=== PATIENT | female | born 1980 | race Caucasian/White ===

== ENCOUNTER 2022-08-11 03:39 | Outpatient (CLI) | payer MEDICAID, SELFPAY ==
[2022-08-11 14:09] LABS: Anion Gap 6.9 mmol/L (3-11); BUN 17 mg/dL (7-18); CO2 29.1 mmol/L (21.0-32.0); CREATININE 0.7 mg/dL (0.55-1.02); Calcium 9.8 mg/dL (8.5-10.1); Calculated LDL 32 mg/dL (<100); Chloride 102 mmol/L (98-107); Cholesterol 203 mg/dL (<200); Estimated GFR 109.98 (mL/min/1.73m2); Glucose 93 mg/dL (74-106); HDL Cholesterol 157 mg/dL (40-60); Potassium 4.5 mmol/L (3.5-5.1); Sodium 138 mmol/L (136-145); TSH (W/Ref FT4) 0.65 uIU/mL (0.36-3.74); Triglyceride 70 mg/dL (<150)
[2022-08-11 19:59] LABS: Lab Add On Test DONE
[2022-08-11 20:07] LABS: Magnesium 2.3 mg/dL (1.8-2.4)
== END 2022-08-11 03:40 | disposition home or self-care (01) ==
LOC: LBO 03:39
PROVIDERS: PCP Student in an Organized Health Care Education/Training Program; Visit Provider Student in an Organized Health Care Education/Training Program
DX: Z13.220 Encounter for screening for lipoid disorders (principal); E34.9 Endocrine disorder, unspecified; F32.A Depression, unspecified; N92.1 Excessive and frequent menstruation with irregular cycle; R45.86 Emotional lability; R45.89 Other symptoms and signs involving emotional state; R53.83 Other fatigue; E86.0 Dehydration; Z91.89 Other specified personal risk factors, not elsewhere classified; E63.9 Nutritional deficiency, unspecified; Z86.39 Personal history of other endocrine, nutritional and metabolic disease
CPT/HCPCS: 36415; 80048; 80061; 83735; 84443

== ENCOUNTER 2023-02-03 11:01 | Outpatient (CLI) | payer MEDICAID, SELFPAY ==
[2023-02-03 11:39] LABS: Absolute Eosinophil Count 0.07 10^3/uL (0.0-0.7); Eosinophils % 1.2; RDW 14.8 % (11.7-14.6)
[2023-02-03 12:00] LABS: Abs Immature Grans 0.03 10^3/uL (0.0-0.06); Absolute Basophil Count 0.03 10^3/uL (0.0-0.2); Absolute Lymphocyte Count 1.95 10^3/uL (1.2-3.4); Absolute Monocyte Count 0.82 10^3/uL (0.1-0.8); Absolute Neutrophil Count 2.88 10^3/uL (1.2-6.7); Basophils % 0.5; Immature Grans % 0.5; Lymphocytes % 33.7; MCH 34.7 pg (27.0-33.0); MPV 11.4 fL (8.0-11.0); Monocytes % 14.2; Neutrophils % 49.9; Platelet Count 158 10^3/uL (130-400); RBC 4.12 10^6/uL (3.93-5.22); RDW-SD 48.1 fL; WBC 5.78 10^3/uL (4.4-10.8)
[2023-02-03 12:01] LABS: CO2 21.2 mmol/L (21.0-32.0)
[2023-02-03 12:44] LABS: ALT 101 U/L (14-59); AST 111 U/L (15-37); Alkaline Phosphatase 128 U/L (46-116); Anion Gap 14.8 mmol/L (3-11); BUN 13 mg/dL (7-18); Bilirubin, Total 0.8 mg/dL (0.2-1.0); CREATININE 0.9 mg/dL (0.55-1.02); Chloride 101 mmol/L (98-107); Estimated GFR 80.84 (mL/min/1.73m2); Glucose 102 mg/dL (74-106); Potassium 4.1 mmol/L (3.5-5.1); Sodium 137 mmol/L (136-145); Total Protein 6.9 g/dL (6.4-8.2)
[2023-02-03 12:49] LABS: Calcium 8.9 mg/dL (8.5-10.1)
[2023-02-03 12:50] LABS: HCT 37.4 % (36.0-46.0); MCV 91 fL (80-95)
[2023-02-03 12:51] LABS: MCHC 37.3 % (32.0-36.0)
[2023-02-03 21:34] LABS: Prolactin 5.5 ng/mL (See Note)
== END 2023-02-03 11:02 | disposition home or self-care (01) ==
LOC: LBO 11:03
PROVIDERS: PCP Student in an Organized Health Care Education/Training Program; Visit Provider Obstetrics & Gynecology
DX: N92.5 Other specified irregular menstruation (principal); E78.1 Pure hyperglyceridemia; D64.9 Anemia, unspecified; R74.8 Abnormal levels of other serum enzymes; E63.8 Other specified nutritional deficiencies; E87.8 Other disorders of electrolyte and fluid balance, not elsewhere classified
CPT/HCPCS: 36415; 80053; 84146; 84443; 85025

== ENCOUNTER → 2023-02-05 01:45 | Outpatient (CLI) | payer MEDICAID, SELFPAY ==
--- NOTE | 2023-02-05 08:45 | DI.US_ITS ---
Exam(s) US PELVIS EXAM: US PELVIS CLINICAL HISTORY: anatomy, DYSNFUNCTIONAL UTERINE BLEEDING, N93.8 TECHNIQUE: Transabdominal imaging was performed using standard protocol. The patient declined trans vaginal imaging due to current menses and discomfort. COMPARISON: No exams were available for comparison FINDINGS: UTERUS: Anteverted. 6.6 x 3.9 x 4 cm. Cm Endometrium: 5 mm Myometrium: Unremarkable. Cervix: Unremarkable. OVARIES: Right: Cyst or mass: None. Left: Cyst or mass: 2.3 centimeter dominant follicle. DOPPLER: Color: Symmetric and uniform flow to both ovaries. No hyperemia. CUL-DE-SAC: Free fluid: None. IMPRESSION: 1. Normal-appearing uterus with endometrial stripe within normal limits. 2. Unremarkable bilateral ovaries. DATA REPOSITORY:
== END ==
PROVIDERS: PCP Student in an Organized Health Care Education/Training Program; Visit Provider Obstetrics & Gynecology
DX: N93.8 Other specified abnormal uterine and vaginal bleeding (principal)
CPT/HCPCS: 76856

== ENCOUNTER 2023-02-09 10:06 | Outpatient (CLI) | payer MEDICAID, SELFPAY ==
[2023-02-09 08:18] LABS: Abs Immature Grans 0.06 10^3/uL (0.0-0.06); Absolute Basophil Count 0.05 10^3/uL (0.0-0.2); Absolute Eosinophil Count 0.13 10^3/uL (0.0-0.7); Absolute Lymphocyte Count 2.46 10^3/uL (1.2-3.4); Absolute Monocyte Count 0.69 10^3/uL (0.1-0.8); Absolute Neutrophil Count 2.94 10^3/uL (1.2-6.7); Basophils % 0.8; Eosinophils % 2.1; HCT 34.8 % (36.0-46.0); Immature Grans % 0.9; Lymphocytes % 38.9; MCV 90 fL (80-95); MPV 10.6 fL (8.0-11.0); Monocytes % 10.9; Neutrophils % 46.4; Platelet Count 207 10^3/uL (130-400); RBC 3.85 10^6/uL (3.93-5.22); RDW 14.8 % (11.7-14.6); RDW-SD 48.4 fL; WBC 6.33 10^3/uL (4.4-10.8)
[2023-02-09 08:33] LABS: Anion Gap 12.3 mmol/L (3-11); CO2 22.7 mmol/L (21.0-32.0); Chloride 96 mmol/L (98-107); Potassium 4.1 mmol/L (3.5-5.1); Sodium 131 mmol/L (136-145)
[2023-02-09 08:48] LABS: HGB 13.7 g/dL (11.2-15.7)
[2023-02-09 10:12] LABS: Iron 61 ug/dL (50-170)
[2023-02-09 10:25] LABS: Albumin 2.5 g/dL (3.4-5.0); Alkaline Phosphatase 126 U/L (46-116); BUN 12 mg/dL (7-18); Bilirubin, Total 0.8 mg/dL (0.2-1.0); CREATININE 0.7 mg/dL (0.55-1.02); Ferritin 161 ng/mL (8-252); Glucose 122 mg/dL (74-106); Magnesium 1.7 mg/dL (1.8-2.4); Vitamin B12 1162 pg/mL (193-986)
[2023-02-09 10:34] LABS: Total Iron Binding Capacity 207 ug/dL (250-450); Transferrin Sat 29 % (15-50)
[2023-02-09 10:35] LABS: Folate > 20.0 ng/mL (8.6-20.0)
[2023-02-09 12:08] LABS: GGT 565 U/L (5-55); Lipase 65 U/L (16-77)
[2023-02-09 12:20] LABS: Triglyceride 3964 mg/dL (<150)
[2023-02-09 12:28] LABS: ALT 75 U/L (14-59); AST 81 U/L (15-37)
[2023-02-09 17:39] LABS: Lab Add On Test DONE
[2023-02-10 11:13] LABS: Hepatitis A Antibody IgM Negative (Negative); Hepatitis B Core Antibody Negative (Negative); Hepatitis B surface Ag Negative (Negative); Hepatitis C Ab w Rflx HCV PCR Negative (Negative)
[2023-02-10 22:49] LABS: Estimated Average Glucose 108 mg/dL; Hemoglobin A1C 5.4 % (<5.7)
== END 2023-02-09 10:07 | disposition home or self-care (01) ==
LOC: LBO 10:06
PROVIDERS: PCP Student in an Organized Health Care Education/Training Program; Visit Provider Student in an Organized Health Care Education/Training Program
DX: G47.62 Sleep related leg cramps (principal); N93.8 Other specified abnormal uterine and vaginal bleeding; R74.8 Abnormal levels of other serum enzymes; E46 Unspecified protein-calorie malnutrition; E86.0 Dehydration; G25.81 Restless legs syndrome; R79.89 Other specified abnormal findings of blood chemistry; R89.9 Unspecified abnormal finding in specimens from other organs, systems and tissues; R73.09 Other abnormal glucose
CPT/HCPCS: 36415; 80053; 83690; 83721; 85610; 86704; 86709; 86803; 87340; 82607; 82728; 82746; 82977; 83036; 83540; 83550; 83735; 84478; 85025

== ENCOUNTER 2023-02-11 11:42 | Outpatient (CLI) | payer MEDICAID, SELFPAY ==
[2023-02-11 09:14] LABS: HCT 31.9 % (36.0-46.0); HGB 12.1 g/dL (11.2-15.7)
[2023-02-11 10:05] LABS: CO2 19.7 mmol/L (21.0-32.0); Cholesterol 623 mg/dL (<200); HDL Cholesterol 33 mg/dL (40-60); Triglyceride 3337 mg/dL (<150)
[2023-02-11 10:17] LABS: LDL CHOLESTEROL 145 mg/dL (<100)
[2023-02-11 10:19] LABS: Iron 100 ug/dL (50-170)
[2023-02-11 10:20] LABS: ALT 82 U/L (14-59); Albumin 2.6 g/dL (3.4-5.0); Alkaline Phosphatase 117 U/L (46-116); Anion Gap 16.3 mmol/L (3-11); BUN 14 mg/dL (7-18); Bilirubin, Total 0.9 mg/dL (0.2-1.0); CREATININE 0.7 mg/dL (0.55-1.02); Calcium 8.5 mg/dL (8.5-10.1); Chloride 101 mmol/L (98-107); Glucose 123 mg/dL (74-106); Potassium 4.4 mmol/L (3.5-5.1); Sodium 137 mmol/L (136-145)
[2023-02-11 10:40] LABS: Bilirubin, Direct 0.3 mg/dL (0.0-0.2)
[2023-02-11 10:42] LABS: AST 87 U/L (15-37)
[2023-02-12 21:37] LABS: Estimated Average Glucose 105 mg/dL; Hemoglobin A1C 5.3 % (<5.7)
== END 2023-02-11 11:43 | disposition home or self-care (01) ==
LOC: LBO 11:43
PROVIDERS: PCP Student in an Organized Health Care Education/Training Program; Visit Provider Student in an Organized Health Care Education/Training Program
DX: E78.1 Pure hyperglyceridemia (principal); D64.9 Anemia, unspecified; E87.8 Other disorders of electrolyte and fluid balance, not elsewhere classified; E63.9 Nutritional deficiency, unspecified
CPT/HCPCS: 36415; 80048; 80061; 80076; 83721; 83036; 83540; 83735; 84478; 85014; 85018

== ENCOUNTER 2023-02-12 10:34 | Outpatient (CLI) | payer MEDICAID, SELFPAY ==
[2023-02-12 10:23] LABS: Triglyceride 3493 mg/dL (<150)
[2023-02-12 10:55] LABS: Folate > 20.0 ng/mL (8.6-20.0)
[2023-02-12 11:05] LABS: Albumin 2.6 g/dL (3.4-5.0); Vitamin B12 1002 pg/mL (193-986)
[2023-02-15 12:02] LABS: Lipoprotein (a) <7 nmol/L (<75)
[2023-02-16 15:47] LABS: Apolipoprotein B, Serum 194 mg/dL (48-124); Beta VLDL Cholesterol Not Detected mg/dL (<15); Beta VLDL Triglycerides Not Detected mg/dL (<15); Cholesterol, Total, CDC 771 mg/dL; Chylomicron Cholesterol 62 mg/dL; Chylomicron Triglycerides 1240 mg/dL; HDL Cholesterol, CDC 8 mg/dL (>=50); LDL Cholesterol 126 mg/dL; LDL Triglycerides 414 mg/dL (<=50); Lp(a) Cholesterol <5 mg/dL (<5); LpX Not detected; Triglycerides, CDC 3975 mg/dL; VLDL Cholesterol 575 mg/dL (<30); VLDL Triglycerides 2253 mg/dL (<120)
== END 2023-02-12 10:35 | disposition home or self-care (01) ==
LOC: LBO 10:34
PROVIDERS: PCP Student in an Organized Health Care Education/Training Program; Visit Provider Student in an Organized Health Care Education/Training Program
DX: E78.1 Pure hyperglyceridemia (principal); E87.8 Other disorders of electrolyte and fluid balance, not elsewhere classified; R77.0 Abnormality of albumin; R74.8 Abnormal levels of other serum enzymes
CPT/HCPCS: 36415; 80061; 81596; 83695; 83721; 82040; 82172; 82607; 82664; 82746; 84478

== ENCOUNTER 2023-02-15 01:58 | Outpatient (CLI) | payer MEDICAID, SELFPAY ==
[2023-02-15 08:48] LABS: HDL Cholesterol 36 mg/dL (40-60)
[2023-02-15 08:49] LABS: Cholesterol 662 mg/dL (<200); Triglyceride 1986 mg/dL (<150)
[2023-02-15 08:59] LABS: LDL CHOLESTEROL 157 mg/dL (<100)
== END 2023-02-15 01:59 | disposition home or self-care (01) ==
LOC: LBO 01:58
PROVIDERS: PCP Student in an Organized Health Care Education/Training Program; Visit Provider Student in an Organized Health Care Education/Training Program
DX: E78.1 Pure hyperglyceridemia (principal)
CPT/HCPCS: 80061; 83721

== ENCOUNTER 2023-02-19 11:49 | Outpatient (CLI) | payer MEDICAID, SELFPAY ==
[2023-02-19 10:27] LABS: HDL Cholesterol 27 mg/dL (40-60)
[2023-02-19 10:33] LABS: Cholesterol 495 mg/dL (<200)
[2023-02-19 10:39] LABS: Triglyceride 3163 mg/dL (<150)
[2023-02-19 10:42] LABS: LDL CHOLESTEROL 92 mg/dL (<100)
== END 2023-02-19 11:50 | disposition home or self-care (01) ==
LOC: LBO 11:50
PROVIDERS: PCP Student in an Organized Health Care Education/Training Program; Visit Provider Nurse Practitioner Adult Health
DX: E78.1 Pure hyperglyceridemia (principal)
CPT/HCPCS: 36415; 80061; 83721

== ENCOUNTER 2023-02-23 08:19 | Outpatient (CLI) | payer MEDICAID, SELFPAY ==
[2023-02-23 09:48] LABS: HDL Cholesterol 36 mg/dL (40-60)
[2023-02-23 10:31] LABS: Cholesterol 572 mg/dL (<200); Triglyceride 2940 mg/dL (<150)
[2023-02-23 10:32] LABS: LDL CHOLESTEROL 105 mg/dL (<100)
== END 2023-02-23 08:20 | disposition home or self-care (01) ==
LOC: LBO 08:19
PROVIDERS: PCP Student in an Organized Health Care Education/Training Program; Visit Provider Nurse Practitioner Adult Health
DX: E78.1 Pure hyperglyceridemia (principal)
CPT/HCPCS: 36415; 80061; 83721

== ENCOUNTER 2023-02-26 09:10 | Outpatient (CLI) | payer MEDICAID, SELFPAY ==
[2023-02-26 10:36] LABS: Cholesterol 494 mg/dL (<200); HDL Cholesterol 39 mg/dL (40-60); Triglyceride 1095 mg/dL (<150)
[2023-02-26 10:45] LABS: LDL CHOLESTEROL 115 mg/dL (<100)
== END 2023-02-26 09:11 | disposition home or self-care (01) ==
LOC: LBO 09:10
PROVIDERS: PCP Student in an Organized Health Care Education/Training Program; Visit Provider Student in an Organized Health Care Education/Training Program
DX: E78.1 Pure hyperglyceridemia (principal)
CPT/HCPCS: 36415; 80061; 83721

== ENCOUNTER 2023-03-02 15:13 | Outpatient (CLI) | payer MEDICAID, SELFPAY ==
[2023-03-02 10:21] LABS: Cholesterol 323 mg/dL (<200); HDL Cholesterol 32 mg/dL (40-60); Triglyceride 1104 mg/dL (<150)
[2023-03-02 10:32] LABS: LDL CHOLESTEROL 82 mg/dL (<100)
== END 2023-03-02 15:14 | disposition home or self-care (01) ==
LOC: LBO 15:13
PROVIDERS: PCP Student in an Organized Health Care Education/Training Program; Visit Provider Nurse Practitioner Adult Health
DX: E78.1 Pure hyperglyceridemia (principal)
CPT/HCPCS: 36415; 80061; 83721

== ENCOUNTER 2023-03-05 10:24 | Outpatient (CLI) | payer MEDICAID, SELFPAY ==
[2023-03-05 09:31] LABS: Cholesterol 245 mg/dL (<200); HDL Cholesterol 39 mg/dL (40-60); Triglyceride 668 mg/dL (<150)
[2023-03-05 09:48] LABS: LDL CHOLESTEROL 68 mg/dL (<100)
== END 2023-03-05 10:25 | disposition home or self-care (01) ==
LOC: LBO 10:24
PROVIDERS: PCP Student in an Organized Health Care Education/Training Program; Visit Provider Nurse Practitioner Adult Health
DX: E78.1 Pure hyperglyceridemia (principal)
CPT/HCPCS: 36415; 80061; 83721

== ENCOUNTER 2023-03-08 18:58 | Outpatient (CLI) | payer MEDICAID, SELFPAY ==
[2023-03-08 09:55] LABS: Cholesterol 250 mg/dL (<200); HDL Cholesterol 39 mg/dL (40-60); Triglyceride 905 mg/dL (<150)
[2023-03-08 10:16] LABS: LDL CHOLESTEROL 53 mg/dL (<100)
[2023-03-11 11:01] LABS: ALT 47 U/L (7-45); ActiTest Grade A0-A1; ActiTest Interpretation no activity; ActiTest Score 0.25; Alpha-2-Macroglobulin 186 mg/dL (100 - 280); Apoliprotein A1 157 mg/dL (>=140); Bilirubin, Total 0.5 mg/dL (0.0 - 1.2); FibroTest Interpretation no fibrosis; FibroTest Score 0.23; FibroTest Stage F0-F1; GGT 125 U/L (5 - 36); Haptoglobin 97 mg/dL (30 - 200)
== END 2023-03-08 18:59 | disposition home or self-care (01) ==
LOC: LBO 18:59
PROVIDERS: PCP Student in an Organized Health Care Education/Training Program; Visit Provider Nurse Practitioner Adult Health
DX: R74.8 Abnormal levels of other serum enzymes (principal); E78.1 Pure hyperglyceridemia
CPT/HCPCS: 36415; 80061; 81596; 83721

== ENCOUNTER 2023-03-23 17:42 | Outpatient (CLI) | payer MEDICAID, SELFPAY ==
[2023-03-23 09:14] LABS: Cholesterol 252 mg/dL (<200); HDL Cholesterol 22 mg/dL (40-60)
[2023-03-23 09:18] LABS: Triglyceride 1306 mg/dL (<150)
[2023-03-23 09:29] LABS: LDL CHOLESTEROL 55 mg/dL (<100)
== END 2023-03-23 17:43 | disposition home or self-care (01) ==
LOC: LBO 17:42
PROVIDERS: PCP Student in an Organized Health Care Education/Training Program; Visit Provider Student in an Organized Health Care Education/Training Program
DX: E78.1 Pure hyperglyceridemia (principal)
CPT/HCPCS: 36415; 80061; 83721

== ENCOUNTER 2023-03-30 14:20 | Outpatient (CLI) | payer MEDICAID, SELFPAY ==
[2023-03-30 10:08] LABS: Cholesterol 320 mg/dL (<200); HDL Cholesterol 32 mg/dL (40-60); Triglyceride 1356 mg/dL (<150)
[2023-03-30 10:18] LABS: LDL CHOLESTEROL 61 mg/dL (<100)
== END 2023-03-30 14:21 | disposition home or self-care (01) ==
LOC: LBO 14:20
PROVIDERS: PCP Student in an Organized Health Care Education/Training Program; Visit Provider Nurse Practitioner Adult Health
DX: E78.3 Hyperchylomicronemia (principal)
CPT/HCPCS: 36415; 80061; 83721

== ENCOUNTER 2023-04-06 10:43 | Outpatient (CLI) | payer MEDICAID, SELFPAY ==
[2023-04-06 09:34] LABS: Cholesterol 339 mg/dL (<200); HDL Cholesterol 34 mg/dL (40-60)
[2023-04-06 09:36] LABS: Triglyceride 1924 mg/dL (<150)
[2023-04-06 09:47] LABS: LDL CHOLESTEROL 64 mg/dL (<100)
== END 2023-04-06 10:44 | disposition home or self-care (01) ==
LOC: LBO 10:43
PROVIDERS: PCP Student in an Organized Health Care Education/Training Program; Visit Provider Student in an Organized Health Care Education/Training Program
DX: Z13.220 Encounter for screening for lipoid disorders (principal); E78.1 Pure hyperglyceridemia; E76.3 Mucopolysaccharidosis, unspecified
CPT/HCPCS: 36415; 80061; 83721

== ENCOUNTER 2023-04-15 12:50 | Outpatient (CLI) | payer MEDICAID, SELFPAY ==
[2023-04-15 11:11] LABS: Cholesterol 363 mg/dL (<200); HDL Cholesterol 28 mg/dL (40-60)
[2023-04-15 11:18] LABS: Triglyceride 1481 mg/dL (<150)
[2023-04-15 11:30] LABS: LDL CHOLESTEROL 74 mg/dL (<100)
== END 2023-04-15 12:51 | disposition home or self-care (01) ==
LOC: LBO 12:50
PROVIDERS: PCP Student in an Organized Health Care Education/Training Program; Visit Provider Nurse Practitioner Adult Health
DX: E78.1 Pure hyperglyceridemia (principal)
CPT/HCPCS: 36415; 80061; 83721

== ENCOUNTER 2023-04-26 14:04 | Outpatient (CLI) | payer MEDICAID, SELFPAY ==
[2023-04-26 13:48] LABS: Cholesterol 353 mg/dL (<200); HDL Cholesterol 29 mg/dL (40-60)
[2023-04-26 13:58] LABS: Triglyceride 1994 mg/dL (<150)
[2023-04-26 14:09] LABS: LDL CHOLESTEROL 69 mg/dL (<100)
== END 2023-04-26 14:05 | disposition home or self-care (01) ==
LOC: LBO 14:04
PROVIDERS: PCP Student in an Organized Health Care Education/Training Program; Visit Provider Nurse Practitioner Adult Health
DX: E78.1 Pure hyperglyceridemia (principal)
CPT/HCPCS: 36415; 80061; 83721

== ENCOUNTER 2023-05-13 15:10 | Outpatient (CLI) | payer MEDICAID, SELFPAY ==
[2023-05-13 11:36] LABS: ALT 55 U/L (14-59); AST 65 U/L (15-37); Albumin 3.1 g/dL (3.4-5.0); Alkaline Phosphatase 66 U/L (46-116); Bilirubin, Total 0.5 mg/dL (0.2-1.0); Calculated LDL 99 mg/dL (<100); Cholesterol 187 mg/dL (<200); HDL Cholesterol 58 mg/dL (40-60); Total Protein 7.3 g/dL (6.4-8.2); Triglyceride 154 mg/dL (<150)
[2023-05-13 11:48] LABS: Bilirubin, Direct 0.2 mg/dL (0.0-0.2)
== END 2023-05-13 15:11 | disposition home or self-care (01) ==
LOC: LBO 15:10
PROVIDERS: PCP Student in an Organized Health Care Education/Training Program; Visit Provider Nurse Practitioner Adult Health
DX: E78.1 Pure hyperglyceridemia (principal); K76.9 Liver disease, unspecified
CPT/HCPCS: 36415; 80061; 80076

== ENCOUNTER 2023-05-20 10:15 | Outpatient (CLI) | payer MEDICAID, SELFPAY ==
[2023-05-20 11:04] LABS: Calculated LDL 67 mg/dL (<100); Cholesterol 169 mg/dL (<200); HDL Cholesterol 72 mg/dL (40-60); Triglyceride 154 mg/dL (<150)
== END 2023-05-20 10:16 | disposition home or self-care (01) ==
PROVIDERS: PCP Student in an Organized Health Care Education/Training Program; Visit Provider Nurse Practitioner Adult Health
DX: E78.1 Pure hyperglyceridemia (principal)
CPT/HCPCS: 36415; 80061

== ENCOUNTER 2023-06-03 10:54 | Outpatient (CLI) | payer MEDICAID, SELFPAY ==
[2023-06-03 10:54] LABS: Calculated LDL 34 mg/dL (<100); Cholesterol 174 mg/dL (<200); HDL Cholesterol 84 mg/dL (40-60); Triglyceride 282 mg/dL (<150)
== END 2023-06-03 10:55 | disposition home or self-care (01) ==
LOC: LBO 10:54
PROVIDERS: PCP Student in an Organized Health Care Education/Training Program; Visit Provider Student in an Organized Health Care Education/Training Program
DX: E78.1 Pure hyperglyceridemia (principal); E78.3 Hyperchylomicronemia
CPT/HCPCS: 36415; 80061

== ENCOUNTER 2023-06-18 10:09 | Outpatient (CLI) | payer MEDICAID, SELFPAY ==
[2023-06-18 11:00] LABS: ALT 66 U/L (14-59); AST 58 U/L (15-37); Albumin 3.3 g/dL (3.4-5.0); Alkaline Phosphatase 72 U/L (46-116); Anion Gap 9.6 mmol/L (3-11); BUN 16 mg/dL (7-18); Bilirubin, Total 0.1 mg/dL (0.2-1.0); CO2 26.4 mmol/L (21.0-32.0); CREATININE 0.8 mg/dL (0.55-1.02); Calcium 8.7 mg/dL (8.5-10.1); Chloride 103 mmol/L (98-107); Cholesterol 224 mg/dL (<200); Estimated GFR 93.12 (mL/min/1.73m2); Glucose 99 mg/dL (74-106); HDL Cholesterol 51 mg/dL (40-60); Potassium 4.3 mmol/L (3.5-5.1); Sodium 139 mmol/L (136-145); Total Protein 7.4 g/dL (6.4-8.2); Triglyceride 795 mg/dL (<150)
[2023-06-18 11:11] LABS: LDL CHOLESTEROL 60 mg/dL (<100)
[2023-06-18 11:39] LABS: Bilirubin, Direct 0.1 mg/dL (0.0-0.2)
== END 2023-06-18 10:10 | disposition home or self-care (01) ==
LOC: LBO 10:10
PROVIDERS: PCP Student in an Organized Health Care Education/Training Program; Visit Provider Student in an Organized Health Care Education/Training Program
DX: E78.1 Pure hyperglyceridemia (principal); E78.3 Hyperchylomicronemia; E87.8 Other disorders of electrolyte and fluid balance, not elsewhere classified; R74.8 Abnormal levels of other serum enzymes; Z13.220 Encounter for screening for lipoid disorders
CPT/HCPCS: 36415; 80048; 80061; 80076; 83721

== ENCOUNTER 2023-07-01 10:42 | Outpatient (CLI) | payer MEDICAID, SELFPAY ==
[2023-07-01 09:51] LABS: Calculated LDL 91 mg/dL (<100); Cholesterol 173 mg/dL (<200); HDL Cholesterol 52 mg/dL (40-60); Triglyceride 152 mg/dL (<150)
== END 2023-07-01 10:43 | disposition home or self-care (01) ==
LOC: LBO 10:42
PROVIDERS: PCP Student in an Organized Health Care Education/Training Program; Visit Provider Student in an Organized Health Care Education/Training Program
DX: E78.3 Hyperchylomicronemia (principal); E78.1 Pure hyperglyceridemia; R74.8 Abnormal levels of other serum enzymes; E87.8 Other disorders of electrolyte and fluid balance, not elsewhere classified; R77.0 Abnormality of albumin
CPT/HCPCS: 36415; 80061

== ENCOUNTER 2023-07-29 11:45 | Outpatient (CLI) | payer MEDICAID, SELFPAY ==
[2023-07-29 11:38] LABS: Calculated LDL 112 mg/dL (<100); Cholesterol 209 mg/dL (<200); HDL Cholesterol 67 mg/dL (40-60); Triglyceride 152 mg/dL (<150)
== END 2023-07-29 11:46 | disposition home or self-care (01) ==
LOC: LBO 11:47
PROVIDERS: PCP Student in an Organized Health Care Education/Training Program; Visit Provider Student in an Organized Health Care Education/Training Program
DX: E78.1 Pure hyperglyceridemia
CPT/HCPCS: 36415; 80061

== ENCOUNTER 2023-08-27 10:16 | Outpatient (REF) | payer MEDICAID, SELFPAY ==
--- NOTE | 2023-08-27 09:30 | PAPFT_PTH ---
PATIENT: Jody Lake LOC: [facility] U#:[id number] AGE/SX: 43/F ROOM: RE08/27/[address]: Cheryl Dos Santos : 1980 BED: DIS: 08/27/2023 SPEC #: [id number] RECD: 08/27/23 13:28 STATUS: NORIS REMilton #: [id number] YOANNA: 08/27/23 09:[address]: Cheryl Dos Santos DEPT: [facility] Cytology RECD BY: Mery Bosch ENTERED: 08/27/23 13:28 SP TYPE: PAPFT OTHR DR: Debbie Esquivel DO Tissues: 1 - CX/ENDOCX FOR PAP SMEARS Procedures: PAP THIN PREP/UVM Screening HPV DNA PROBE Comments: [id number]
[2023-08-28 14:28] LABS: Chlamydia Result Negative (Negative); GC Result Negative (Negative)
== END 2023-08-27 10:17 | disposition home or self-care (01) ==
LOC: LBN 10:16
PROVIDERS: PCP Student in an Organized Health Care Education/Training Program; Visit Provider Advanced Practice Midwife
DX: Z12.4 Encounter for screening for malignant neoplasm of cervix (principal); Z11.51 Encounter for screening for human papillomavirus (HPV); B37.31 Acute candidiasis of vulva and vagina
CPT/HCPCS: 87491; 87591; 88142; 87624

== ENCOUNTER 2023-08-27 10:22 | Outpatient (CLI) | payer MEDICAID, SELFPAY ==
[2023-08-27 10:36] LABS: Anion Gap 10.1 mmol/L (3-11); BUN 16 mg/dL (7-18); CO2 25.9 mmol/L (21.0-32.0); CREATININE 0.7 mg/dL (0.55-1.02); Calcium 8.6 mg/dL (8.5-10.1); Chloride 105 mmol/L (98-107); Glucose 95 mg/dL (74-106); Potassium 3.9 mmol/L (3.5-5.1); Sodium 141 mmol/L (136-145)
[2023-08-27 10:49] LABS: Cholesterol 247 mg/dL (<200); HDL Cholesterol 46 mg/dL (40-60); TSH (W/Ref FT4) 1.07 uIU/mL (0.36-3.74); Triglyceride 949 mg/dL (<150)
[2023-08-27 11:01] LABS: LDL CHOLESTEROL 48 mg/dL (<100)
== END 2023-08-27 10:23 | disposition home or self-care (01) ==
LOC: LBO 10:22
PROVIDERS: PCP Student in an Organized Health Care Education/Training Program; Visit Provider Student in an Organized Health Care Education/Training Program
DX: Z13.220 Encounter for screening for lipoid disorders; F41.9 Anxiety disorder, unspecified
CPT/HCPCS: 36415; 80048; 80061; 82947; 83721; 84443

== ENCOUNTER 2023-09-13 14:30 | Outpatient (CLI) | payer MEDICAID, SELFPAY ==
[2023-09-13 11:16] LABS: Glucose 104 mg/dL (74-106)
[2023-09-13 11:22] LABS: ALT 51 U/L (14-59); AST 55 U/L (15-37); Albumin 3.5 g/dL (3.4-5.0); Alkaline Phosphatase 81 U/L (46-116); Anion Gap 11.7 mmol/L (3-11); BUN 13 mg/dL (7-18); Bilirubin, Total 0.4 mg/dL (0.2-1.0); CO2 27.3 mmol/L (21.0-32.0); CREATININE 0.8 mg/dL (0.55-1.02); Calcium 8.8 mg/dL (8.5-10.1); Chloride 103 mmol/L (98-107); Cholesterol 230 mg/dL (<200); Estimated GFR 93.12 (mL/min/1.73m2); Glucose 103 mg/dL (74-106); HDL Cholesterol 63 mg/dL (40-60); Sodium 142 mmol/L (136-145); Total Protein 7.7 g/dL (6.4-8.2); Triglyceride 461 mg/dL (<150)
[2023-09-13 11:32] LABS: LDL CHOLESTEROL 58 mg/dL (<100)
[2023-09-13 11:42] LABS: Bilirubin, Direct 0.1 mg/dL (0.0-0.2)
== END 2023-09-13 14:31 | disposition home or self-care (01) ==
LOC: LBO 14:31
PROVIDERS: PCP Student in an Organized Health Care Education/Training Program; Visit Provider Student in an Organized Health Care Education/Training Program
DX: Z91.89 Other specified personal risk factors, not elsewhere classified (principal); G47.62 Sleep related leg cramps; R73.01 Impaired fasting glucose; D64.9 Anemia, unspecified; R77.0 Abnormality of albumin
CPT/HCPCS: 36415; 80053; 80061; 80076; 82947; 83721

== ENCOUNTER 2023-09-24 09:02 | Outpatient (CLI) | payer MEDICAID, SELFPAY ==
[2023-09-24 08:50] LABS: HCT 38.2 % (36.0-46.0); HGB 12.5 g/dL (11.2-15.7)
[2023-09-24 09:05] LABS: Anion Gap 8.8 mmol/L (3-11); BUN 18 mg/dL (7-18); CO2 28.2 mmol/L (21.0-32.0); CREATININE 0.8 mg/dL (0.55-1.02); Chloride 103 mmol/L (98-107); Cholesterol 234 mg/dL (<200); Estimated GFR 93.12 (mL/min/1.73m2); Glucose 93 mg/dL (74-106); HDL Cholesterol 86 mg/dL (40-60); Potassium 4.5 mmol/L (3.5-5.1); Sodium 140 mmol/L (136-145); Triglyceride 556 mg/dL (<150)
[2023-09-24 09:16] LABS: LDL CHOLESTEROL 52 mg/dL (<100)
== END 2023-09-24 09:03 | disposition home or self-care (01) ==
PROVIDERS: PCP Student in an Organized Health Care Education/Training Program; Visit Provider Student in an Organized Health Care Education/Training Program
DX: D64.9 Anemia, unspecified; R77.0 Abnormality of albumin; G47.62 Sleep related leg cramps; Z13.220 Encounter for screening for lipoid disorders; Z91.89 Other specified personal risk factors, not elsewhere classified
CPT/HCPCS: 36415; 80048; 80061; 83721; 85014; 85018

== ENCOUNTER 2023-10-15 10:17 | Outpatient (CLI) | payer MEDICAID, SELFPAY ==
[2023-10-15 10:50] LABS: BUN 16 mg/dL (7-18); CREATININE 0.8 mg/dL (0.55-1.02); Calcium 9.3 mg/dL (8.5-10.1); Calculated LDL 68 mg/dL (<100); Chloride 100 mmol/L (98-107); Cholesterol 200 mg/dL (<200); Estimated GFR 93.12 (mL/min/1.73m2); Glucose 93 mg/dL (74-106); HDL Cholesterol 79 mg/dL (40-60); Sodium 137 mmol/L (136-145); Triglyceride 269 mg/dL (<150)
== END 2023-10-15 10:18 | disposition home or self-care (01) ==
LOC: LBO 10:17
PROVIDERS: PCP Student in an Organized Health Care Education/Training Program; Visit Provider Student in an Organized Health Care Education/Training Program
DX: E63.9 Nutritional deficiency, unspecified (principal); E87.8 Other disorders of electrolyte and fluid balance, not elsewhere classified; E78.3 Hyperchylomicronemia; E78.1 Pure hyperglyceridemia; R74.8 Abnormal levels of other serum enzymes; R73.01 Impaired fasting glucose
CPT/HCPCS: 36415; 80048; 80061

== ENCOUNTER 2023-10-24 04:55 | Emergency (ER) | payer MEDICAID, SELFPAY ==
[2023-10-24 04:57] VITALS: BP 216/120; PULSE 95; TEMP 36.6; O2SAT 99
[2023-10-24] MEDS: Lidocaine 5% Patch 1 PATCH TP (05:24)
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
--- NOTE | 2023-10-24 05:55 | DI.RAD_ITS ---
Exam(s) XR RIBS RT W PA LAT CHEST EXAM: XR RIBS RT W PA LAT CHEST CLINICAL HISTORY: right ant/lateral rib pain after fall (rib 4/5) TECHNIQUE: 2D digital imaging was performed. COMPARISON: No exams were available for comparison FINDINGS: Total views = 6 RIBS 4 VIEWS-RIGHT There are no obvious acute rib fractures evident. No lytic rib lesions identified. CXR- 2 VIEWS: No lung contusion or pneumothorax. There is no pleural effusion evident. Heart size is normal and there is no significant mediastinal widening. IMPRESSION: 1. No obvious rib fractures evident. Also no significant rib lesions. 2. No ipsilateral lung nor pleural abnormality evident. No pneumothorax. DATA REPOSITORY: RADIATION DOSE DELIVERED:
[2023-10-24] MEDS: Ketorolac 30 MG/ML VIAL IM (06:17)
[2023-10-24] MEDS: Acetaminophen 500 MG TAB 1000 MG PO (06:17)
[2023-10-24 06:58] VITALS: BP 194/120; PULSE 83; RESP 22; TEMP 36.8; O2SAT 99
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
== END 2023-10-24 07:00 | disposition home or self-care (01) ==
PROVIDERS: Emergency Provider Student in an Organized Health Care Education/Training Program; PCP Student in an Organized Health Care Education/Training Program
DX: S22.31XA Fracture of one rib, right side, initial encounter for closed fracture (principal); E78.00 Pure hypercholesterolemia, unspecified; F10.10 Alcohol abuse, uncomplicated; I10 Essential (primary) hypertension; Z87.891 Personal history of nicotine dependence; V18.4XXA Pedal cycle driver injured in noncollision transport accident in traffic accident, initial encounter; Y93.55 Activity, bike riding; Y92.414 Local residential or business street as the place of occurrence of the external cause
CPT/HCPCS: 76604; 81025; 96372; 99285; 71046; 71100; 99284; J1885

== ENCOUNTER 2023-12-07 08:51 | Outpatient (CLI) | payer MEDICAID, SELFPAY ==
[2023-12-07 10:03] LABS: Anion Gap 8.8 mmol/L (3-11); BUN 20 mg/dL (7-18); CO2 27.2 mmol/L (21.0-32.0); CREATININE 0.9 mg/dL (0.55-1.02); Calcium 9.2 mg/dL (8.5-10.1); Chloride 103 mmol/L (98-107); Cholesterol 229 mg/dL (<200); Estimated GFR 80.84 (mL/min/1.73m2); Glucose 93 mg/dL (74-106); HDL Cholesterol 32 mg/dL (40-60); Potassium 4.3 mmol/L (3.5-5.1); Sodium 139 mmol/L (136-145); Triglyceride 439 mg/dL (<150)
[2023-12-07 10:26] LABS: LDL CHOLESTEROL 57 mg/dL (<100)
== END 2023-12-07 08:52 | disposition home or self-care (01) ==
LOC: LBO 08:52
PROVIDERS: PCP Student in an Organized Health Care Education/Training Program; Visit Provider Student in an Organized Health Care Education/Training Program
DX: E63.9 Nutritional deficiency, unspecified (principal); E87.8 Other disorders of electrolyte and fluid balance, not elsewhere classified; E78.3 Hyperchylomicronemia; E78.1 Pure hyperglyceridemia; R73.01 Impaired fasting glucose
CPT/HCPCS: 36415; 80048; 80061; 83721

== ENCOUNTER 2024-05-16 13:52 | Outpatient (CLI) | payer MEDICAID, SELFPAY ==
[2024-05-16 11:53] LABS: ALT 26 U/L (14-59); AST 41 U/L (15-37); Albumin 3.7 g/dL (3.4-5.0); Alkaline Phosphatase 74 U/L (46-116); BUN 12 mg/dL (7-18); Bilirubin, Direct 0.1 mg/dL (0.0-0.2); Bilirubin, Total 0.46 mg/dL (0.2-1.0); CREATININE 0.8 mg/dL (0.55-1.02); Calculated LDL 75 mg/dL (<100); Chloride 105 mmol/L (98-107); Cholesterol 185 mg/dL (<200); Estimated GFR 92.54 (mL/min/1.73m2); Glucose 94 mg/dL (74-106); HDL Cholesterol 71 mg/dL (40-60); Potassium 3.9 mmol/L (3.5-5.1); Sodium 140 mmol/L (136-145); Total Protein 7.5 g/dL (6.4-8.2); Triglyceride 195 mg/dL (<150)
[2024-05-16 12:01] LABS: Hemoglobin A1C 4.9 % (<5.7)
== END 2024-05-16 13:53 | disposition home or self-care (01) ==
LOC: LBO 13:53
PROVIDERS: PCP Student in an Organized Health Care Education/Training Program; Visit Provider Student in an Organized Health Care Education/Training Program
DX: Z13.220 Encounter for screening for lipoid disorders (principal); E46 Unspecified protein-calorie malnutrition; R73.09 Other abnormal glucose; I10 Essential (primary) hypertension; E63.9 Nutritional deficiency, unspecified; E87.8 Other disorders of electrolyte and fluid balance, not elsewhere classified; E78.3 Hyperchylomicronemia; E78.1 Pure hyperglyceridemia; R73.01 Impaired fasting glucose
CPT/HCPCS: 36415; 80048; 80061; 80076; 83036